=== PATIENT | male | born 2000 | race Caucasian/White ===

== ENCOUNTER → 2021-10-23 | Outpatient (CLI) | payer OTHER ==
--- NOTE | 2021-10-23 08:41 | US ---
EXAMINATION TYPE: US axilla RT DATE OF EXAM: 10/23/2021 COMPARISON: NONE CLINICAL HISTORY: R22.2 Localized swelling, mass and lump, trunk. Lump right axilla Hypoechoic area seen lump area measuring .7 x .2 x .2 cm. Dermal-based lesion well defined oval hypoechoic without vascularity. IMPRESSION: As above. Etiology uncertain but favored benign. Repeat imaging would be warranted if le cris is felt to enlarge or become painful.
== END | disposition home or self-care (01) ==
LOC: RADUSWWP 08:02
PROVIDERS: ATTEND Family Medicine
DX: R22.2 Localized swelling, mass and lump, trunk (principal)